=== PATIENT | male | born 1975 | race African-American/Black ===

== ENCOUNTER 2016-12-27 17:49 | Emergency (ER) | payer SELFPAY ==
[2016-12-27] MEDS ORDERED: Ketorolac Tromethamine 60 MG/2 ML VIAL ONE (19:42)
[2016-12-27] MEDS ORDERED: levETIRAcetam 500 MG TAB PO SCH (20:00)
== END 2016-12-27 20:26 | disposition home or self-care (01) ==
LOC: ERS 17:49
DX: G40.909 Epilepsy, unspecified, not intractable, without status epilepticus (principal); Z79.899 Other long term (current) drug therapy
CPT/HCPCS: 36416; 96372; J1885

== ENCOUNTER 2017-02-08 22:22 | Emergency (ER) | payer SELFPAY ==
[2017-02-08] MEDS ORDERED: Lorazepam 2 MG/ML VIAL ONE (22:51)
[2017-02-09 00:09] LABS: Hematocrit 45.6 % (42.0-52.0); Mean Platelet Volume 8.4 fL (7.4-10.4); Neutrophil 73 % (42-75); Red Blood Cell (RBC) Count 4.66 mill/uL (4.70-6.10); White Blood Cell (WBC) Count 25.8 thou/uL (4.8-10.8)
[2017-02-09 00:11] LABS: Anion Gap 29 mmol/L (10-20); BUN (Urea Nitrogen) 19 mg/dL (8.9-20.6); Calc. Creatinine Clearance 0 mL/min (70-130); Calcium 9.9 mg/dL (7.8-10.44); Chloride 111 mmol/L (98-107); Estimated GFR-MDRD 64
[2017-02-09 00:14] LABS: Carbon Dioxide 9 mmol/L (22-29)
[2017-02-09 00:57] LABS: Anion Gap 13 mmol/L (-14-95); Lactate 1.94 mmol/L (0.50-2.20); POC Est. GFR-MDRD-African-Amer Greater than 60; POC Estimated GFR-MDRD Greater than 60; T. Carbon Dioxide 20.5 mmol/L (1.0-85.0); pH (Venous) 7.318 (7.35-7.45); vO2 Saturation-calc 94.3 % (0.0-100.0)
[2017-02-09 01:04] LABS: CK (CPK) 519 U/L (30-200); Lipase 45 U/L (8-78)
[2017-02-09 01:21] LABS: Bilirubin Negative (Negative); Blood, Urine Moderate (Negative); Glucose, Urine (Dipstick) Negative (Negative); Ketone, Urine Negative (Negative); Nitrite Negative (Negative); Protein, Urine (Dipstick) 30 mg/dL (Neg-Trace); Urobilinogen 0.2 mg/dL (0.2-1.0)
[2017-02-09 01:24] LABS: Bacteria/HPF None Seen HPF (None Seen); Hyaline Casts/LPF 0-3 HYALINE CAST LPF (0-3 Hyaline); RBC/HPF 0-3 HPF (0-3); Squamous Epithelial None Seen HPF (0-3); WBC/HPF 0-3 HPF (0-3)
[2017-02-09 01:37] LABS: Lactic Acid - Sepsis 17.9 mmol/L (0.5-2.2)
[2017-02-09 02:27] LABS: #Lymphocytes 1.2 thou/uL (1.20-3.40); #Monocytes 0.9 thou/uL (0.11-0.59); #Neutrophils 10.4 thou/uL (1.40-6.50); %Basophils 0.1 % (0.0-1.0); %Eosinophils 0.3 % (0.0-10.0); %Lymphocytes 9.7 % (21.0-51.0); %Monocytes 7.5 % (0.0-10.0); Hematocrit 38.2 % (42.0-52.0); Mean Platelet Volume 8.2 fL (7.4-10.4); Red Blood Cell (RBC) Count 4.01 mill/uL (4.70-6.10); White Blood Cell (WBC) Count 12.7 thou/uL (4.8-10.8)
[2017-02-09 02:45] LABS: Amphetamine Not Detected (NotDetected); Methadone Not Detected (NotDetected); Methamphetamine Not Detected (NotDetected)
--- NOTE | 2017-02-09 07:28 | CT ---
CT BRAIN WITHOUT CONTRAST: Date: 02/08/17 HISTORY: Altered mental status. COMPARISON: CT brain from 2016. FINDINGS: No acute territorial infarct or hemorrhage. No midline shift or mass effect. Ventricular size and ext ra-axial CSF spaces are normal. Calvarium is intact. Paranasal sinuses and mastoids are clear. IMPRESSION: No acute intracranial abnormality. No significant change. POS: [facility] [place]
--- NOTE | 2017-02-09 09:54 | RAD ---
PORTABLE UPRIGHT CHEST: Date: 02/08/17 HISTORY: Altered mental status with seizures. FINDINGS: Film shot in a lordotic fashion. Heart size is borderline. Mediastinal structures are unremarkable. L ungs are clear of infiltrates. Irregular appearance to the right humeral head is noted. This is seen on the previous 2016 study and appears to be related to an old shoulder injury and dislocation. IMPRESSION: No active intrathoracic disease. Heart size upper limits of normal. POS: [facility]
== END 2017-02-09 03:47 | disposition home or self-care (01) ==
LOC: ERS 22:22
DX: G40.909 Epilepsy, unspecified, not intractable, without status epilepticus (principal); Z79.899 Other long term (current) drug therapy
CPT/HCPCS: 36415; 70450; 71010; 80048; 80177; 80306; 81003; 81015; 82330; 82435; 82550; 82565; 82803; 82947; 83605; 83690; 84132; 84295; 85014; 85025; 96361; 96374; J2060